=== PATIENT | male | born 1990 | race Caucasian/White ===

== ENCOUNTER 2016-11-08 20:46 | Emergency (ER) | payer SELFPAY ==
[~2016-11-08] VITALS: Ht 175.3 cm; Wt 90.7 kg
[~2016-11-08 20:46] MED LIST: PENI500T PO; TRAM-29 PO
[2016-11-08 20:55] VITALS: BP 163/88
[2016-11-08] MEDS ORDERED: HYDR-971 PO (21:40)
[2016-11-08] MEDS ORDERED: AMOX500C PO (21:40)
--- NOTE | 2016-11-08 21:40 | PHYS DOC ---
Past Medical History Past Medical History: Other Additional Past Medical Histor: Dental pain Past Surgical History: No Surgical History Alcohol Use: None Drug Use: None Adult General Chief Complaint Chief Complaint: Toothache HPI HPI Patient is a 26 year old male with complaint of ongoing atraumatic left lower dental pain. Patient states his increased in intensity over the past 4-5 days. 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 Patient was actually seen here approximately one week ago for the same complaint. He has not been on antibiotics within the past 30 days. Review of Systems Review of Systems Constitutional: Denies fever or chills [] Eyes: Denies change in visual acuity, redness, or eye pain [] HENT: Denies nasal congestion or sore throat [] Respiratory: Denies cough or shortness of breath [] Cardiovascular: No additional information not addressed in HPI [] GI: Denies abdominal pain, nausea, vomiting, bloody stools or diarrhea [] : Denies dysuria or hematuria [] Musculoskeletal: Denies back pain or joint pain [] Integument: Denies rash or skin lesions [] Neurologic: Denies headache, focal weakness or sensory changes [] Endocrine: Denies polyuria or polydipsia [] Allergies Allergies Allergies Coded Allergies Type Severity Reaction Last Updated Verified Sulfa (Sulfonamide Antibiotics) Allergy Intermediate 03/08/16 No Physical Exam Physical Exam Constitutional: Well developed, well nourished, no acute distress, non-toxic appearance. [] HENT: Normocephalic, atraumatic, bilateral external ears normal, oropharynx moist, no oral exudates, nose normal. There is no trismus. There is widespread dental caries and very stages of decay. Patient's left mandibular lateral incisor and first cuspid are decayed into the pulp. There is no purulent drainage or adjacent gingival abscess. Eyes: PERRLA, EOMI, conjunctiva normal, no discharge. [] Neck: Normal range of motion, no tenderness, supple, no stridor. [] Cardiovascular:Heart rate regular rhythm, no murmur [] Lungs & Thorax: Bilateral breath sounds clear to auscultation [] Abdomen: Bowel sounds normal, soft, no tenderness, no masses, no pulsatile masses. [] Skin: Warm, dry, no erythema, no rash. [] Back: No tenderness, no CVA tenderness. [] Extremities: No tenderness, no cyanosis, no clubbing, ROM intact, no edema. [] Neurologic: Alert and oriented X 3, normal motor function, normal sensory function, no focal deficits noted. [] Psychologic: Affect normal, judgement normal, mood normal. [] Current Patient Data Vital Signs Vital Signs Date Time Temp Pulse Resp B/P Pulse Ox O2 Delivery O2 Flow Rate FiO2 11/08/16 20:55 98.4 114 20 96 Room Air 98.4 EKG EKG [] Radiology/Procedures Radiology/Procedures [] Course & Med Decision Making Course & Med Decision Making Pertinent Labs and Imaging studies reviewed. (See chart for details) [] Dragon Disclaimer Dragon Disclaimer This electronic medical record was generated, in whole or in part, using a voice recognition dictation system. Departure Departure Impression: Primary Impression: Dental caries Disposition: HOME, SELF-CARE Condition: GOOD Referrals: NO PCP (PCP) Patient Instructions: Dental Caries-Brief Additional Instructions: 1. Take the medication as prescribed. 2. Review the discharge instructions for self-care and reasons to return the emergency department. 3. You been given a list of dental clinics of the [facility]. These places often operated discounted program and be sure to call and have establish an appointment so that you can receive definitive dental care. Scripts Amoxicillin 500 Mg Capsule1 Cap PO TID #30 CAP Prov:JONG ALDRICH 11/08/16 Hydrocodone/Apap 5-325 ([place] 5-325 Tablet)1 Each Tablet1 Tab PO PRN Q6HRS PRN PAIN #15 TAB Prov:JONG ALDRICH 11/08/16 JONG ALDRICH Nov 08, 2016 21:41
== END 2016-11-08 22:00 | disposition home or self-care (01) ==
LOC: ER 20:46
DX: K02.9 Dental caries, unspecified (principal); Z88.2 Allergy status to sulfonamides
CPT/HCPCS: 99283

== ENCOUNTER 2016-11-12 08:56 | Emergency (ER) | payer SELFPAY ==
[~2016-11-12] VITALS: Ht 175.3 cm; Wt 90.7 kg
[~2016-11-12 08:56] MED LIST changes: +AMOX500C PO; +HYDR-971 PO
[2016-11-12 09:04] VITALS: BP 152/82
[2016-11-12] MEDS ORDERED: TRAM-29 PO (09:27)
--- NOTE | 2016-11-12 09:27 | PHYS DOC ---
Past Medical History Past Medical History: Other Additional Past Medical Histor: Dental pain Past Surgical History: No Surgical History Smokin Pack Per Day Alcohol Use: None Drug Use: None Adult General Chief Complaint Chief Complaint: DENTAL PROBLEM HPI HPI Patient is a 26 year old male who presents with left mandibular dental pain. He was seen here on 11/08/16 for the same. He was prescribed amoxicillin and [place]. He is still taking the antibiotic. He is out of the pain medication. He reports that he has an appointment at [facility] next week but is waiting for his tax return check to be able to afford the procedure. The swelling that he had previously has improved. He does not have a PCP. Review of Systems Review of Systems Constitutional: Denies fever or chills. [] Eyes: Denies change in visual acuity, redness, or eye pain. [] HENT: Denies ear pain, nasal congestion or sore throat. Reports dental pain. Integument: Denies rash or skin lesions. [] Neurologic: Denies headache, focal weakness or sensory changes. [] Allergies Allergies Allergies Coded Allergies Type Severity Reaction Last Updated Verified Sulfa (Sulfonamide Antibiotics) Allergy Intermediate 03/08/16 No Physical Exam Physical Exam Constitutional: Well developed, well nourished, no acute distress, non-toxic appearance. [] HENT: Normocephalic, atraumatic, bilateral external ears normal, oropharynx moist, no oral exudates, nose normal. There is widespread dental decay and caries with multiple fractured teeth. There is no gingival edema or dental abscess. Eyes: PERRLA, EOMI, conjunctiva normal, no discharge. [] Neck: Normal range of motion, no tenderness, supple, no stridor. [] Skin: Warm, dry, no erythema, no rash. [] Neurologic: Alert and oriented X 3, normal motor function, normal sensory function, no focal deficits noted. [] Psychologic: Affect normal, judgement normal, mood normal. [] Current Patient Data Vital Signs Vital Signs Date Time Temp Pulse Resp B/P Pulse Ox O2 Delivery O2 Flow Rate FiO2 11/12/16 09:04 98.2 112 18 99 Room Air 98.2 EKG EKG [] Radiology/Procedures Radiology/Procedures [] Course & Med Decision Making Course & Med Decision Making Pertinent Labs and Imaging studies reviewed. (See chart for details) [] Dragon Disclaimer Dragon Disclaimer This electronic medical record was generated, in whole or in part, using a voice recognition dictation system. Departure Departure Impression: Primary Impression: Dental caries Disposition: 01 HOME, SELF-CARE Condition: STABLE Referrals: NO PCP (PCP) Patient Instructions: Dental Caries Additional Instructions: You must follow up with a dentist to have your teeth repaired. They will continue to cause you pain until they are repaired. The emergency department does not provide dental care. Scripts Tramadol Hcl (Ultram)50 Mg [id number] Mg PO Q6H PRN PAIN #20 TAB Prov:GISEL JUAN 11/12/16 GISEL JUAN Nov 12, 2016 09:27
== END 2016-11-12 09:32 | disposition home or self-care (01) ==
LOC: ER 08:56
DX: K02.9 Dental caries, unspecified (principal); F17.210 Nicotine dependence, cigarettes, uncomplicated; Z88.2 Allergy status to sulfonamides
CPT/HCPCS: 99283

== ENCOUNTER 2016-12-04 09:27 | Emergency (ER) | payer SELFPAY ==
[2016-12-04 09:48] VITALS: BP 172/93
[2016-12-04] MEDS ORDERED: TRAM-29 PO (11:04)
--- NOTE | 2016-12-04 11:05 | PHYS DOC ---
Past Medical History Past Medical History: Other Additional Past Medical Histor: Dental pain Past Surgical History: No Surgical History Alcohol Use: None Drug Use: None Adult General Chief Complaint Chief Complaint: DENTAL PROBLEM HPI HPI Patient is a 26 year old male presents emergency department for the third time since November 08 for dental pain. Patient states that he had seen a dentist approximately 2 weeks ago in need to have some teeth removed. He states that the time he had seen his dentist he was not having discomfort. Patient states he has had 2 rounds of antibiotics. He states that he cannot take Tylenol 3 tramadol is the only medications that he can take it does not cause him to have an upset stomach. Patient denies any fever, chills or any nausea or vomiting. Review of Systems Review of Systems Constitutional: Denies fever or chills [] Eyes: Denies change in visual acuity, redness, or eye pain [] HENT: Denies nasal congestion or sore throat. C/o dental pain Respiratory: Denies cough or shortness of breath [] Cardiovascular: No additional information not addressed in HPI [] GI: Denies abdominal pain, nausea, vomiting, bloody stools or diarrhea [] : Denies dysuria or hematuria [] Musculoskeletal: Denies back pain or joint pain [] Integument: Denies rash or skin lesions [] Neurologic: Denies headache, focal weakness or sensory changes [] Allergies Allergies Allergies Coded Allergies Type Severity Reaction Last Updated Verified Sulfa (Sulfonamide Antibiotics) Allergy Intermediate 03/08/16 No Physical Exam Physical Exam Constitutional: Well developed, well nourished, no acute distress, non-toxic appearance. [] HENT: Normocephalic, atraumatic, bilateral external ears normal, oropharynx moist, no oral exudates, nose normal. Lateral tympanic membranes appear to be normal. Patient appears to have multiple decayed, fractured teeth. No infection or abscess noted. Eyes: PERRLA, EOMI, conjunctiva normal, no discharge. [] Neck: Normal range of motion, no tenderness, supple, no stridor. [] Cardiovascular:Heart rate regular rhythm, no murmur [] Lungs & Thorax: no respiratory distress noted Skin: Warm, dry, no erythema, no rash. [] Back: No tenderness Extremities: No tenderness, no cyanosis, no clubbing, ROM intact, no edema. [] Neurologic: Alert and oriented X 3, normal motor function, normal sensory function, no focal deficits noted. [] Psychologic: Affect normal, judgement normal, mood normal. [] Current Patient Data Vital Signs Vital Signs Date Time Temp Pulse Resp B/P Pulse Ox O2 Delivery O2 Flow Rate FiO2 12/04/16 09:48 98.2 88 18 98 Room Air 98.2 EKG EKG [] Radiology/Procedures Radiology/Procedures [] Course & Med Decision Making Course & Med Decision Making Pertinent Labs and Imaging studies reviewed. (See chart for details) Spoke with patient in regards to multiple visits here in the emergency department for dental pain requiring pain medication. Also spoke with patient in regards to following up with a dentist for further pain management. Patient will be provided with 2 tablets of tramadol. As he states he cannot take Tylenol 3 or any other type of pain medication that it causes him to be nauseated. Patient was provided with signs and symptoms to return back to emergency department. Patient will be discharged home in stable condition. [] Dragon Disclaimer Dragon Disclaimer This electronic medical record was generated, in whole or in part, using a voice recognition dictation system. Departure Departure Impression: Primary Impression: Chronic dental pain Additional Impression: Drug-seeking behavior Disposition: 01 HOME, SELF-CARE Condition: STABLE Referrals: NO PCP (PCP) Patient Instructions: Dental Pain, [id number] Additional Instructions: Tylenol or Ibuprofen for pain and discomfort Warm salt water mouth rinses Tramadol will cause drowsiness do not take if you need to be alert and oriented Followup with dentist for further pain control Return to emergency department as needed for signs and symptoms that become worse. Scripts Tramadol Hcl (Ultram)50 Mg Tablet1 Tab PO Q6HRS #2 TAB Prov:SEVEN AKHTAR NP 12/04/16 Problem Qualifiers SEVEN AKHTAR NP Dec 04, 2016 11:05
== END 2016-12-04 11:22 | disposition home or self-care (01) ==
LOC: ER 09:27
DX: K08.89 Other specified disorders of teeth and supporting structures (principal); G89.29 Other chronic pain; Z76.5 Malingerer [conscious simulation]; Z88.2 Allergy status to sulfonamides
CPT/HCPCS: 99283

== ENCOUNTER 2017-07-23 22:34 | Emergency (ER) | payer SELFPAY ==
[~2017-07-23] VITALS: Ht 175.3 cm; Wt 90.7 kg
[~2017-07-23 22:34] MED LIST changes: -TRAM-29 PO; +TRAM-48 PO
[2017-07-23 22:44] VITALS: BP 135/93
[2017-07-23] MEDS ORDERED: PENI500T PO (22:51)
[2017-07-23] MEDS ORDERED: NAPR500T PO (22:51)
--- NOTE | 2017-07-23 22:52 | PHYS DOC ---
Past Medical History Past Medical History: Other Additional Past Medical Histor: Dental pain Past Surgical History: No Surgical History Alcohol Use: None Drug Use: None Adult General Chief Complaint Chief Complaint: DENTAL PROBLEM HPI HPI Patient is a 27 year old male presents to the emergency department with chronic dental pain. He states had increasing pain for 3 days. No fever. No difficulty with swallowing or phonation. Review of Systems Review of Systems Constitutional: Denies fever or chills [] Eyes: Denies change in visual acuity, redness, or eye pain [] HENT: Denies nasal congestion or sore throat, dental pain [] Respiratory: Denies cough or shortness of breath [] Cardiovascular: No additional information not addressed in HPI [] GI: Denies abdominal pain, nausea, vomiting, bloody stools or diarrhea [] : Denies dysuria or hematuria [] Musculoskeletal: Denies back pain or joint pain [] Integument: Denies rash or skin lesions [] Neurologic: Denies headache, focal weakness or sensory changes [] Endocrine: Denies polyuria or polydipsia [] Allergies Allergies Allergies Coded Allergies Type Severity Reaction Last Updated Verified Sulfa (Sulfonamide Antibiotics) Allergy Intermediate 03/08/16 No Physical Exam Physical Exam Constitutional: Well developed, well nourished, no acute distress, non-toxic appearance. [] HENT: Normocephalic, atraumatic, bilateral external ears normal, oropharynx moist, widespread dental caries, lower gingiva with erythema. No oral exudates, nose normal. [] Eyes: PERRLA, EOMI, conjunctiva normal, no discharge. [] Neck: Normal range of motion, no tenderness, supple, no stridor. [] Cardiovascular:Heart rate regular rhythm, no murmur [] Lungs & Thorax: Bilateral breath sounds clear to auscultation [] Abdomen: Bowel sounds normal, soft, no tenderness, no masses, no pulsatile masses. [] Skin: Warm, dry, no erythema, no rash. [] Back: No tenderness, no CVA tenderness. [] Extremities: No tenderness, no cyanosis, no clubbing, ROM intact, no edema. [] Neurologic: Alert and oriented X 3, normal motor function, normal sensory function, no focal deficits noted. [] Psychologic: Affect normal, judgement normal, mood normal. [] Current Patient Data Vital Signs Vital Signs Date Time Temp Pulse Resp B/P (MAP) Pulse Ox O2 Delivery O2 Flow Rate FiO2 07/23/17 22:44 97.9 87 20 97 Room Air 97.9 EKG EKG [] Radiology/Procedures Radiology/Procedures [] Course & Med Decision Making Course & Med Decision Making Pertinent Labs and Imaging studies reviewed. (See chart for details) [] Dragon Disclaimer Dragon Disclaimer This electronic medical record was generated, in whole or in part, using a voice recognition dictation system. Departure Departure Impression: Primary Impression: Dental caries Additional Impression: Chronic dental pain Disposition: HOME, SELF-CARE Condition: STABLE Referrals: NO PCP (PCP) [facility] Patient Instructions: Dental Caries, Gingivitis Scripts Penicillin V Potassium (PENICILLIN V POTASSIUM) 500 Mg Tablet 1 TAB PO QID, #40 TAB Prov: HARRY BARRY APRN 07/23/17 Naproxen (NAPROSYN) 500 Mg Tablet 500 MG PO BID Y for PAIN, #20 TAB Prov: HARRY BARRY APRN 07/23/17 Problem Qualifiers HARRY BARRY APRN Jul 23, 2017 22:52
== END 2017-07-23 22:56 | disposition home or self-care (01) ==
LOC: ER 22:34
DX: K02.9 Dental caries, unspecified (principal); G89.29 Other chronic pain; Z88.2 Allergy status to sulfonamides
CPT/HCPCS: 99283

== ENCOUNTER 2018-03-13 11:13 | Emergency (ER) | payer SELFPAY | END 2018-03-13 13:09 | disposition home or self-care (01) | LOC: ER 11:13 | DX: G89.29 Other chronic pain (principal); K08.89 Other specified disorders of teeth and supporting structures; F17.200 Nicotine dependence, unspecified, uncomplicated; Z88.2 Allergy status to sulfonamides | CPT/HCPCS: 99283 ==

== ENCOUNTER 2018-03-18 14:55 | Emergency (ER) | payer SELFPAY | END 2018-03-18 15:12 | disposition home or self-care (01) | LOC: ER 15:12 | DX: G89.29 Other chronic pain (principal); K08.89 Other specified disorders of teeth and supporting structures; Z88.2 Allergy status to sulfonamides | CPT/HCPCS: 99283 ==

== ENCOUNTER 2018-04-30 11:21 | Emergency (ER) | payer SELFPAY | END 2018-04-30 11:53 | disposition home or self-care (01) | LOC: ER 11:21 | DX: K02.9 Dental caries, unspecified (principal); G89.29 Other chronic pain; Z88.2 Allergy status to sulfonamides | CPT/HCPCS: 99283 ==

== ENCOUNTER 2018-10-10 16:43 | Emergency (ER) | payer SELFPAY ==
[~2018-10-10] VITALS: Ht 175.3 cm; Wt 90.7 kg
[~2018-10-10 16:43] MED LIST changes: +HYDR-3164 PO; -HYDR-971 PO; +NAPR-514 PO; +NAPR-683 PO; +NAPR500T8 PO; +PRED50TA PO; +TRAM50TA PO
[2018-10-10 16:55] VITALS: BP 163/91
[2018-10-10] MEDS ORDERED: IBUP-1007 PO (17:00)
[2018-10-10] MEDS ORDERED: HYDR-3164 PO (17:00)
--- NOTE | 2018-10-10 17:00 | PHYS DOC ---
Past Medical History Past Medical History: Other Additional Past Medical Histor: Dental pain Past Surgical History: No Surgical History Alcohol Use: None Drug Use: None Adult General Chief Complaint Chief Complaint: DENTAL PROBLEM HPI HPI Patient is a 28 year old male who presents with patient has many dental caries and is pain by the tooth to have these teeth pulled. Patient currently has a caries on the bilateral upper and lower mouth but there are no inflamed gum or facial swelling. Review of Systems Review of Systems Constitutional: Denies fever or chills [] Eyes: Denies change in visual acuity, redness, or eye pain [] HENT: Dental caries. Denies nasal congestion or sore throat [] Respiratory: Denies cough or shortness of breath [] Cardiovascular: No additional information not addressed in HPI [] GI: Denies abdominal pain, nausea, vomiting, bloody stools or diarrhea [] : Denies dysuria or hematuria [] Musculoskeletal: Denies back pain or joint pain [] Integument: Denies rash or skin lesions [] Neurologic: Denies headache, focal weakness or sensory changes [] All other systems were reviewed and found to be within normal limits, except as documented in this note. Allergies Allergies Allergies Coded Allergies Type Severity Reaction Last Updated Verified Sulfa (Sulfonamide Antibiotics) Allergy Intermediate 03/08/16 No Physical Exam Physical Exam Constitutional: Well developed, well nourished, no acute distress, non-toxic appearance. [] HENT: Normocephalic, atraumatic, bilateral external ears normal, oropharynx moist, no oral exudates, nose normal. Dental caries.[] Eyes: PERRLA, EOMI, conjunctiva normal, no discharge. [] Neck: Normal range of motion, no tenderness, supple, no stridor. [] Cardiovascular:Heart rate regular rhythm, no murmur [] Lungs & Thorax: Bilateral breath sounds clear to auscultation [] Abdomen: Bowel sounds normal, soft, no tenderness, no masses, no pulsatile masses. [] Skin: Warm, dry, no erythema, no rash. [] Back: No tenderness, no CVA tenderness. [] Extremities: No tenderness, no cyanosis, no clubbing, ROM intact, no edema. [] Neurologic: Alert and oriented X 3, normal motor function, normal sensory function, no focal deficits noted. [] Psychologic: Affect normal, judgement normal, mood normal. [] Current Patient Data Vital Signs Vital Signs Date Time Temp Pulse Resp B/P (MAP) Pulse Ox O2 Delivery O2 Flow Rate FiO2 10/10/18 16:55 98.3 88 16 163/91 (115) 99 Room Air 98.3 EKG EKG [] Radiology/Procedures Radiology/Procedures [] Course & Med Decision Making Course & Med Decision Making Patient is a 28 year old male who presents with patient has many dental caries and is pain by the tooth to have these teeth pulled. Patient currently has a caries on the bilateral upper and lower mouth but there are no inflamed gum or facial swelling. Alert and oriented. Patient has no facial swelling and no inflamed gums as described above his upper and lower mouth. Patient states that he is allergic to sulfa and she's having dental pain and ibuprofen is not helping. He denies fever and he is afebrile in the ED. Denies nausea or vomiting. Patient is given prescription for pain medication and to follow up with a dentist as soon as possible. He is also given resources for dentist. Staff Physician Addendum: I was working in the ER during the course of this patient's visit. I was available for consultation as needed, but I was not directly involved in the care of this patient. Dragon Disclaimer Dragon Disclaimer This electronic medical record was generated, in whole or in part, using a voice recognition dictation system. Departure Departure Impression: Primary Impression: Chronic dental pain Disposition: 01 HOME, SELF-CARE Condition: STABLE Referrals: NO PCP (PCP) Patient Instructions: Dental Caries Additional Instructions: CALL A DENTIST SOON POSSIBLE. TAKE MEDICATIONS PRESCRIBED. USE MOUTH WASH AND BRUSH YOUR TEETH AFTER YOU EAT TO LOWER RISK OF GETTING INFECTION. Scripts Tramadol Hcl (TRAMADOL HCL) 50 Mg Tablet 50 MG PO Q6HRS PRN for PAIN, #15 TAB Prov: SEVEN MORGAN HINGING MACHINE OPERATOR 10/10/18 Ibuprofen (IBUPROFEN) 600 Mg Tablet 600 MG PO PRN Q6HRS PRN for INFLAMMATION, #20 TAB Prov: SEVEN MORGAN HINGING MACHINE OPERATOR 10/10/18 SEVEN MORGAN APRN Oct 10, 2018 17:00 MARISSA HIDALGO MD Oct 11, 2018 12:56
[2018-10-10] MEDS ORDERED: TRAM50TA PO (17:27)
== END 2018-10-10 17:27 | disposition home or self-care (01) ==
LOC: ER 16:43
DX: G89.29 Other chronic pain (principal); K08.89 Other specified disorders of teeth and supporting structures; Z88.2 Allergy status to sulfonamides
CPT/HCPCS: 99283

== ENCOUNTER 2018-11-22 17:49 | Emergency (ER) | payer SELFPAY ==
[~2018-11-22] VITALS: Ht 175.3 cm; Wt 90.7 kg
[~2018-11-22 17:49] MED LIST changes: +IBUP-1007 PO
[2018-11-22 17:54] VITALS: BP 165/91
[2018-11-22] MEDS ORDERED: NAPROXEN 500 MG TABLET PO STA (17:57)
[2018-11-22] MEDS ORDERED: HYDROcodone/APAP 5/325MG 1 TAB TABLET PO ONE (18:00)
--- NOTE | 2018-11-22 18:56 | PHYS DOC ---
Past Medical History Past Medical History: No Pertinent History Additional Past Medical Histor: Dental pain Past Surgical History: No Surgical History Alcohol Use: None Drug Use: None Adult General Chief Complaint Chief Complaint: FOOT INJURY PAIN HPI HPI Patient is a 28 year old male who presents to be evaluated for left foot pain. Patient rates the pain as 7 out of 10, describes the pain as sharp and intermittent. He states he was walking down some steps when he rolled his left foot today. Patient states the pain is worse on weight bearing. Patient states he has not tried anything for his pain. Review of Systems Review of Systems Constitutional: Denies fever or chills [] Musculoskeletal: Reports left foot pain Integument: Denies rash or skin lesions [] Neurologic: Denies headache, focal weakness or sensory changes [] All other systems were reviewed and found to be within normal limits, except as documented in this note. Current Medications Current Medications Current Medications Medications (Trade) Dose Ordered Sig/Yadi Start Time Stop Time Status Last Admin Dose Admin Acetaminophen/ Hydrocodone Bitart (Lortab 5/325) 2 tab 1X ONCE 11/22/18 18:00 11/22/18 18:01 DC 11/22/18 18:04 2 TAB Naproxen (Naprosyn) 500 mg 1X STAT 11/22/18 17:57 11/22/18 17:59 DC 11/22/18 18:05 500 MG Allergies Allergies Allergies Coded Allergies Type Severity Reaction Last Updated Verified Sulfa (Sulfonamide Antibiotics) Allergy Intermediate 03/08/16 No Physical Exam Physical Exam Constitutional: Well developed, well nourished, no acute distress, non-toxic appearance. [] Skin: Warm, dry, no erythema, no rash. [] Back: No tenderness, no CVA tenderness. [] Extremities: Left foot with no obvious deformity. Tenderness on palpation of the navicular bone of the left foot. No pain or tenderness on the base of the fifth metatarsal of the left foot. Full range of motion to the left foot and toes. +2 left pedal pulse. Cap refill less than 2 seconds left toes. Sensation intact to the left lower extremity. Neurologic: Alert and oriented X 3, normal motor function, normal sensory function, no focal deficits noted. [] Psychologic: Affect normal, judgement normal, mood normal. [] Current Patient Data Vital Signs Vital Signs Date Time Temp Pulse Resp B/P (MAP) Pulse Ox O2 Delivery O2 Flow Rate FiO2 11/22/18 17:54 98.0 99 18 165/91 (115) 98 Room Air 98.0 EKG EKG [] Radiology/Procedures Radiology/Procedures [] Course & Med Decision Making Course & Med Decision Making Pertinent Labs and Imaging studies reviewed. (See chart for details) This is a 28-year-old male patient presented to the ED today with left foot pain most of the doctor from the navicular bone. Patient rolled his left foot. He was offered x-rays in the ED. Patient states he does not have any medical insurance and will not be able to afford any imaging. Jag bandage provided in the ED neurovascular exam intact. Instructed the patient. Ice elevation encouraged. Provided orthopedic doctor for follow-up. OTC pain relievers recommended. Dragon Disclaimer Dragon Disclaimer This electronic medical record was generated, in whole or in part, using a voice recognition dictation system. Departure Departure Impression: Primary Impression: Foot sprain Disposition: HOME, SELF-CARE Condition: STABLE Referrals: NO PCP (PCP) GREG KEANE MD follow up in 1 week Patient Instructions: Foot Sprain-Brief Additional Instructions: You were evaluated in the emergency room for left foot pain. Ice elevate the extremity. Follow-up with the provided orthopedic doctor or your own doctor in the course of this week. Scripts Diclofenac Sodium (DICLOFENAC SODIUM) 50 Mg Tablet.dr 1 TAB PO BID, #20 TAB 0 Refills Prov: BRANDO MOLINA APRN 11/22/18 Problem Qualifiers Primary Impression: Foot sprain Encounter type: initial encounter Laterality: left Qualified Codes: S93.602A - Unspecified sprain of left foot, initial encounter BRANDO MOLINA APRN Nov 22, 2018 18:56
[2018-11-22] MEDS ORDERED: DICL50TA4 PO (19:09)
== END 2018-11-22 19:12 | disposition home or self-care (01) ==
LOC: ER 17:49
DX: S93.692A Other sprain of left foot, initial encounter (principal); Z88.2 Allergy status to sulfonamides; W10.8XXA Fall (on) (from) other stairs and steps, initial encounter; Y93.01 Activity, walking, marching and hiking; Y92.89 Other specified places as the place of occurrence of the external cause; Y99.8 Other external cause status
CPT/HCPCS: 99283